=== PATIENT | female | born 1990 | race Caucasian/White ===

== ENCOUNTER 2016-10-24 12:59 | Observation (INO) | payer OTHER ==
[~2016-10-24] VITALS: Ht 167.6 cm; Wt 136.1 kg
[2016-10-24 13:49] VITALS: BP 162/97
[2016-10-24] MEDS ORDERED: CLON0.1T78 PO (13:57)
[2016-10-24] MEDS ORDERED: LOV40I SUBQ (13:57)
--- NOTE | 2016-10-24 14:04 | NUR ---
Patient to bed 04.
--- NOTE | 2016-10-24 14:12 | NUR ---
26/F TO ED WITH C/O SOB, GEN WEAKNESS, AND CHEST DISCOMFORT STARTING TODAY. PT DENIES PAIN. STATES SHE TAKES LOVENOX. LUNGS CLEAR BILAT. HR EVEN AND REGULAR. AAOX4. VSS. NO SIGNS OF DISTRESS.
--- NOTE | 2016-10-24 14:49 | NUR ---
RT-Dusty at bedside to perform ABG.
[2016-10-24 15:05] LABS: BASOPHILS # (AUTO) 0.1 K/uL (0.00-0.22); BASOPHILS % (AUTO) 1.4 % (0.0-2.0); EOSINOPHILS # (AUTO) 0.2 K/uL (0-0.4); EOSINOPHILS % (AUTO) 1.7 % (0.0-4.0); HEMATOCRIT 39.4 % (36-48); HEMOGLOBIN 13.3 g/dL (12.0-16.0); LYMPHOCYTES # (AUTO) 2.9 K/uL (2.5-16.5); LYMPHOCYTES % (AUTO) 27.8 % (20.5-51.1); MEAN CORPUSCULAR HEMOGLOBIN 28 pg (27-31); MEAN CORPUSCULAR HGB CONC 34 g/dL (33-37); MEAN CORPUSCULAR VOLUME 84 fL (80-94); MONOCYTES # (AUTO) 0.5 K/uL (0.8-1.0); MONOCYTES % (AUTO) 5.2 % (1.7-9.3); NEUTROPHILS # (AUTO) 6.6 K/uL (1.8-7.7); NEUTROPHILS % (AUTO) 63.9 % (42.2-75.2); PLATELET COUNT (AUTO) 226 K/uL (140-450); RED BLOOD CELL COUNT(AUTO) 4.67 MIL/uL (4.20-5.40); WHITE BLOOD COUNT (AUTO) 10.3 K/uL (4.8-10.8)
[2016-10-24 15:08] LABS: BLOOD GAS BASE EXCESS 0.2 mmol/L (-2.0-2.0); BLOOD GAS HCO3 24.7 mmol/L; BLOOD GAS PCO2 39.5 mmHg (20-50); BLOOD GAS PH 7.414 (7.35-7.45); BLOOD GAS PO2 88.6 mmHg
[2016-10-24 15:09] LABS: BLOOD GAS O2 SAT% 96.5 % (92.0-98.5)
--- NOTE | 2016-10-24 15:09 | NUR ---
Patient appears to be resting comfortably in bed. Vital Signs within normal limits. Respirations even and unlabored.
[2016-10-24 15:16] LABS: ANION GAP 12.2 (8-16); CALCIUM 8.8 mg/dL (8.5-10.1); CARBON DIOXIDE 26.8 mmol/L (21-32); CREATININE 0.8 mg/dL (0.6-1.3)
[2016-10-24 15:22] LABS: ALBUMIN 3.3 g/dL (3.4-5.0); TOTAL BILIRUBIN 0.6 mg/dL (0.0-1.0); TOTAL PROTEIN, SERUM 7.3 g/dL (6.4-8.2)
--- NOTE | 2016-10-24 17:32 | NUR ---
Patient appears to be resting comfortably in bed. Vital Signs within normal limits. Respirations even and unlabored.
[2016-10-24] MEDS ORDERED: ONDANSETRON 4 MG/2 ML VIAL IVP PRN (17:50)
[2016-10-24] MEDS ORDERED: LOVENOX 1MG/KG Q12H SUBQ SCH (17:50)
[2016-10-24] MEDS ORDERED: hydrALAZINE 20 MG/ML VIAL IVP PRN (17:50)
[2016-10-24] MEDS ORDERED: HYDROcodone/APAP 5/325 MG 1 TAB TAB PO PRN ×2 (17:50)
[2016-10-24] MEDS ORDERED: LORazepam 2 MG/ML VIAL IVP PRN (17:50)
[2016-10-24] MEDS ORDERED: ACETAMINOPHEN 325 MG TAB PO PRN (17:50)
--- NOTE | 2016-10-24 18:21 | NUR ---
Patient will be admitted to care of DR RIVAS. Admited to TELE. Will go to room 104A. Belongings list completed. Report to SAMEER.
--- NOTE | 2016-10-24 18:50 | NUR ---
RECEIVED PATIENT FROM ER, PATIENT ALERT, ORIENTED, DENIES ANY PAIN
--- NOTE | 2016-10-24 19:00 | NUR ---
SBAR REPORT GIVEN TO SINTIA CARLIN
[2016-10-24 19:01] VITALS: BP 145/83
[2016-10-24 20:00] VITALS: BP 128/88
--- NOTE | 2016-10-24 20:15 | NUR ---
ADMITTED 26 Y.O.F FROM ER.PT WAS ON THE FLOOR ALREADY.SHE IS AWAKE,ALERT AND ORIENTED.ORIENTED PT TO ROOM.CALL SYSTEM EXPLAINED AND IN REACH.TELE IS ON AND SHOWING SB.RESP.UNLABORED IN RA.SL PATENT.INITIAL ASSESSMENT DONE CARE PLAN DISCUSSED WITH PT.SHE VERBALIZED UNDERSTANDING.DENIED PAIN AND/OR DISCOMFORT AT TIME OF ADMISSION.WILL CONTINUE MONITORING.
[2016-10-24] MEDS: ENOXAPARIN 100 MG/ML SYR SUBQ SCH (22:00)
[2016-10-24] MEDS: ENOXAPARIN 30 MG/0.3 ML SYR SUBQ SCH (22:00)
[2016-10-24] MEDS ORDERED: ENOXAPARIN 100 MG/ML SYR SUBQ ONE (22:10)
[2016-10-24] MEDS ORDERED: ENOXAPARIN 30 MG/0.3 ML SYR SUBQ ONE (22:10)
[2016-10-25] VITALS: BP 126/85
--- NOTE | 2016-10-25 | NUR ---
SLEEPING.NO C/O PAIN.HR IS SB.PT IS ASYMPTOMATIC.
[2016-10-25 04:00] VITALS: BP 126/80
--- NOTE | 2016-10-25 04:00 | NUR ---
CONDITION STABLE.HR IS SB.URINE D/S SENT TO LAB.NO S/S OF ANY DISTRESS NOTED.
[2016-10-25 04:39] LABS: AMPHETAMINE, URINE NEGATIVE ng/ml (NEG <=1000); BARBITURATE, URINE NEGATIVE ng/ml (NEG <=200); BENZODIAZEPINE, URINE NEGATIVE ng/mL (NEG <=200); CANNABINOID, URINE NEGATIVE ng/mL (NEG <=50); COCAINE, URINE NEGATIVE ng/mL (NEG <=300); OPIATE, URINE NEGATIVE ng/mL (NEG <=2000); PHENCYCLIDINE SCREEN,URINE NEGATIVE ng/mL (NEG <=25)
--- NOTE | 2016-10-25 06:25 | NUR ---
SLEPT WELL.HAS ASYMPTOMATIC BRADYCARDIA.SL PATENT.CALL LIGHT IN REACH.NO DISTRESS NOTED AT PRESENT TIME.
[2016-10-25 06:58] LABS: BASOPHILS # (AUTO) 0.2 K/uL (0.00-0.22); BASOPHILS % (AUTO) 2.6 % (0.0-2.0); EOSINOPHILS # (AUTO) 0.2 K/uL (0-0.4); EOSINOPHILS % (AUTO) 1.8 % (0.0-4.0); HEMATOCRIT 38.6 % (36-48); LYMPHOCYTES # (AUTO) 3.2 K/uL (2.5-16.5); LYMPHOCYTES % (AUTO) 36.5 % (20.5-51.1); MEAN CORPUSCULAR HEMOGLOBIN 28 pg (27-31); MEAN CORPUSCULAR HGB CONC 34 g/dL (33-37); MEAN CORPUSCULAR VOLUME 84 fL (80-94); MONOCYTES # (AUTO) 0.7 K/uL (0.8-1.0); MONOCYTES % (AUTO) 8.1 % (1.7-9.3); NEUTROPHILS # (AUTO) 4.5 K/uL (1.8-7.7); PLATELET COUNT (AUTO) 203 K/uL (140-450); RED CELL DISTRIBUTION WIDTH 14.1 % (11.6-13.7); WHITE BLOOD COUNT (AUTO) 8.8 K/uL (4.8-10.8)
--- NOTE | 2016-10-25 07:20 | NUR ---
RECEIVED PT REPORT AT BEDSIDE FROM NIGHT NURSE. PT IS AAOX4 AND SHOWS NO S/S OF DISTRESS ON ROOM AIR. PT SKIN IS INTACT. PT DID C/O RT SIDE CHEST AND ABD PAIN. PT IS ON TELE MONITORING. PT BED IS LOWERED WITH CALL LIGHT WITHIN REACH. POC WAS DISCUSSED WITH PT AND SHE VERBALIZED UNDERSTANDING.
[2016-10-25 07:21] LABS: CALCIUM 8.5 mg/dL (8.5-10.1); CREATININE 0.8 mg/dL (0.6-1.3); TOTAL BILIRUBIN 0.6 mg/dL (0.0-1.0); TOTAL PROTEIN, SERUM 6.8 g/dL (6.4-8.2)
--- NOTE | 2016-10-25 07:35 | NUR ---
HAD C/O RT SIDE OF CHEST AND ABDOMEN.NORCO 1 TAB PO GIVEN.
[2016-10-25 08:00] VITALS: BP 131/75
--- NOTE | 2016-10-25 08:50 | NUR ---
ADMINISTERED SCHEDULED MEDICATIONS. PT TOLERATED WELL. PT SHOWS NO S/S OF DISTRESS NOTED ONE ROOM AIR.
[2016-10-25] MEDS ORDERED: NIFE30TE5 PO (08:53)
[2016-10-25] MEDS: ENOXAPARIN 100 MG/ML SYR SUBQ SCH (08:59)
[2016-10-25] MEDS: ENOXAPARIN 30 MG/0.3 ML SYR SUBQ SCH (08:59)
[2016-10-25] MEDS ORDERED: NIFEdipine 30 MG TABER PO SCH (09:00)
--- NOTE | 2016-10-25 09:22 | NUR ---
PATIENT HAS BEEN SCREENED AND CATEGORIZED HIGH NUTRITION RISK. PATIENT WILL BE SEEN WITHIN 1-2 DAYS OF ADMISSION. 10/25/16 - 10/26/16 ANALI BLAKE MBA, RD
--- NOTE | 2016-10-25 10:30 | NUR ---
PT BEING SEEN BY MEASURING MACHINE TENDER.
--- NOTE | 2016-10-25 10:50 | NUR ---
PT HAS BEEN DISCHARGED. DISCHARGE INSTRUCTIONS AND PRESCRIPTIONS GIVEN. ALL QUESTIONS ANSWERED. PT VERBALIZED UNDERSTANDING. ALL BELONGINGS AND PRESCRIPTIONS IN PT POSSESSION. IV DISCONTINUED WITH CANNULA INTACT. WRISTBANDS AND TELE MONITOR REMOVED. OFFERED PT WHEELCHAIR, PT REFUSED. PT AMB OUT OF UNIT WITH STEADY GAIT WITH HARSH PATRICIO PRESENT AT SIDE. PT IN STABLE CONDITION.
== END 2016-10-25 10:50 | disposition home or self-care (01) ==
LOC: MED 12:59 → MTU 17:55
PROVIDERS: ADMIT Hospitalist; ATTEND Hospitalist
DX: R00.1 Bradycardia, unspecified (principal); E66.01 Morbid (severe) obesity due to excess calories; R73.03 Prediabetes; I82.401 Acute embolism and thrombosis of unspecified deep veins of right lower extremity; I26.99 Other pulmonary embolism without acute cor pulmonale; Z98.84 Bariatric surgery status; Z68.42 Body mass index [BMI] 45.0-49.9, adult
CPT/HCPCS: 36415; 36600; 80053; 80305; 82803; 84443; 84484; 85025; 87081; 93005; 93307; G0378; J1650; 96372; 99285

== ENCOUNTER 2017-04-30 18:15 | Emergency (ER) | payer OTHER ==
[~2017-04-30] VITALS: Ht 170.2 cm; Wt 117.0 kg
[~2017-04-30 18:15] MED LIST: LOV40I SUBQ; NIFE30TE5 PO
[2017-04-30 18:21] VITALS: BP 176/114
--- NOTE | 2017-04-30 20:14 | NUR ---
PATIENT TO ER BED 11
--- NOTE | 2017-04-30 20:30 | NUR ---
27/F CAME IN W C/O DIZZINESS AND HEADACHE STARTED X 1 HOUR BEFORE ER VISIT. PT STATES SHE WAS DRIVING AND FELT DIZZY, SOB AND HAD ANXIETY, DENIES LOC, HEAD TRAUMA/INJURY. PT REPORTS PHOTOSENSITIVITY AND DIFFUSED HEADACHE. PERRLA, GCS 15, AOX4. ALL LUNG SOUNDS CBTA, 18RR EVEN AND UNLABORED. 46HR EVEN AD REGULAR. DENIES S/S OF DUMPING SYNDROME PMH: BRADYCARDIA GASTRIC BYPASS, HTN. DVT TO RLE. RX: LISINOPRIL BUT REPORTS SHE DOES NOT TAKE MED REGULARY, LAST TAKEN TUEDAY. VSS AT THIS TIME.
[2017-04-30] MEDS ORDERED: NACL 0.9% 1,000 ML IV ONE (21:20)
--- NOTE | 2017-04-30 22:00 | NUR ---
Patient discharged with v/s stable. Written and verbal after care instructions given and explained. Patient verbalized understanding. Ambulatory with steady gait. All questions addressed prior to discharge. Advised to follow up with PMD. IV removed, catheter intact and site benign. Applied folded 4x4 gauze and tape to stop bleeding.
[2017-04-30 22:12] LABS: BASOPHILS # (AUTO) 0.5 K/uL (0.00-0.22); BASOPHILS % (AUTO) 4.6 % (0.0-2.0); EOSINOPHILS # (AUTO) 0.1 K/uL (0-0.4); EOSINOPHILS % (AUTO) 0.8 % (0.0-4.0); HEMATOCRIT 41.8 % (36-48); HEMOGLOBIN 13.7 g/dL (12.0-16.0); LYMPHOCYTES # (AUTO) 2.7 K/uL (2.5-16.5); LYMPHOCYTES % (AUTO) 26.7 % (20.5-51.1); MEAN CORPUSCULAR HEMOGLOBIN 28 pg (27-31); MEAN CORPUSCULAR HGB CONC 33 g/dL (33-37); MEAN CORPUSCULAR VOLUME 85 fL (80-94); MONOCYTES # (AUTO) 0.7 K/uL (0.8-1.0); MONOCYTES % (AUTO) 7.2 % (1.7-9.3); NEUTROPHILS # (AUTO) 6.2 K/uL (1.8-7.7); NEUTROPHILS % (AUTO) 60.7 % (42.2-75.2); PLATELET COUNT (AUTO) 268 K/uL (140-450); RED BLOOD CELL COUNT(AUTO) 4.92 MIL/uL (4.20-5.40); RED CELL DISTRIBUTION WIDTH 14.1 % (11.6-13.7); WHITE BLOOD COUNT (AUTO) 10.3 K/uL (4.8-10.8)
[2017-04-30 22:19] LABS: ANION GAP 9.9 (8-16); CREATININE 0.9 mg/dL (0.6-1.3); POTASSIUM 3.9 mmol/L (3.5-5.1)
[2017-04-30 22:25] LABS: ALBUMIN 3.4 g/dL (3.4-5.0); MAGNESIUM 1.7 mg/dL (1.8-2.4); TOTAL BILIRUBIN 0.4 mg/dL (0.0-1.0)
[2017-04-30 22:30] LABS: D-DIMER < 100 ng/ml (0-400)
[2017-04-30 23:42] VITALS: BP 128/78
== END 2017-04-30 22:00 | disposition home or self-care (01) ==
LOC: MED 18:15
DX: F41.9 Anxiety disorder, unspecified (principal); E11.9 Type 2 diabetes mellitus without complications; I10 Essential (primary) hypertension
CPT/HCPCS: 36415; 80053; 81025; 83735; 85025; 85379; 85610; 85730; 96360; 96361; 99285; J7030

== ENCOUNTER 2018-08-09 07:50 | Observation (INO) | payer OTHER ==
[~2018-08-09] VITALS: Ht 167.6 cm; Wt 124.3 kg
[2018-08-09 09:37] LABS: BILIRUBIN,URINE 1+ (NEGATIVE); BLOOD, URINE NEGATIVE (NEGATIVE); COLOR,URINE YELLOW (YELLOW); LEUKOCYTE ESTERASE ,URINE NEGATIVE (NEGATIVE); NITRITE, URINE NEGATIVE (NEGATIVE); UGLUCOSE NEGATIVE (NEGATIVE)
[2018-08-09 09:40] LABS: BASOPHILS % (AUTO) 0.4 % (0.0-2.0); EOSINOPHILS # (AUTO) 0.1 K/uL (0-0.4); EOSINOPHILS % (AUTO) 0.7 % (0.0-4.0); HEMATOCRIT 33.9 % (36-48); HEMOGLOBIN 11.7 g/dL (12.0-16.0); LYMPHOCYTES % (AUTO) 19.3 % (20.5-51.1); MEAN CORPUSCULAR HEMOGLOBIN 30 pg (27-31); MEAN CORPUSCULAR HGB CONC 34 g/dL (33-37); MEAN CORPUSCULAR VOLUME 87.2 fL (80-94); MONOCYTES # (AUTO) 0.9 K/uL (0.8-1.0); MONOCYTES % (AUTO) 8.6 % (1.7-9.3); NEUTROPHILS # (AUTO) 7.4 K/uL (1.8-7.7); PLATELET COUNT (AUTO) 207 K/uL (140-450); RED BLOOD CELL COUNT(AUTO) 3.89 MIL/uL (4.20-5.40); RED CELL DISTRIBUTION WIDTH 12.9 % (11.6-13.7); WHITE BLOOD COUNT (AUTO) 10.5 K/uL (4.8-10.8)
[2018-08-09 09:41] LABS: APPEARANCE,URINE SLIGHTLY HAZY (CLEAR)
[2018-08-09 09:42] LABS: RBC,URINE 0-5 /HPF (0-5); WBC,URINE 0-5 /HPF (0-5)
[2018-08-09] MEDS ORDERED: CALC500T2 PO (09:46)
[2018-08-09] MEDS ORDERED: VITA1TAB44 PO (09:46)
[2018-08-09] MEDS ORDERED: PREN-380 PO (09:46)
[2018-08-09] MEDS ORDERED: FERR-252 PO (09:46)
== END 2018-08-09 15:00 | disposition home or self-care (01) ==
LOC: MLD 07:50
PROVIDERS: ADMIT Obstetrics & Gynecology; ATTEND Obstetrics & Gynecology
DX: O26.893 Other specified pregnancy related conditions, third trimester (principal); R10.9 Unspecified abdominal pain; Z3A.28 28 weeks gestation of pregnancy
CPT/HCPCS: 36415; 81001; 85025; C1758; G0378; 59025

== ENCOUNTER 2022-10-03 09:18 | Emergency (ER) | payer OTHER ==
[~2022-10-03] VITALS: Ht 170.2 cm; Wt 136.1 kg
[~2022-10-03 09:18] MED LIST changes: +CALC500T2 PO; +FERR-252 PO; -LOV40I SUBQ; -NIFE30TE5 PO; +PREN-380 PO; +VITA1TAB44 PO
[2022-10-03 09:40] VITALS: BP 155/80
[2022-10-03] MEDS ORDERED: IBUPROFEN 600 MG TAB PO ONE (10:35)
[2022-10-03] MEDS ORDERED: IBUP-2213 PO (11:09)
--- NOTE | 2022-10-03 11:11 | NUR ---
MARYAN WRAP X 1 TO R ANKLE + CMS
[2022-10-03 11:14] VITALS: BP 155/80
--- NOTE | 2022-10-03 11:14 | NUR ---
Patient discharged with v/s stable. Written and verbal after care instructions given and explained. Patient alert, oriented and verbalized understanding of instructions. Ambulatory with steady gait. All questions addressed prior to discharge. ID band removed. Patient advised to follow up with PMD. Rx of ibuprofen (sent) given. Patient educated on indication of medication including possible reaction and side effects. Opportunity to ask questions provided and answered.
== END 2022-10-03 11:14 | disposition home or self-care (01) ==
LOC: MED 09:18
DX: S93.491A Sprain of other ligament of right ankle, initial encounter (principal); I25.10 Atherosclerotic heart disease of native coronary artery without angina pectoris; I10 Essential (primary) hypertension; Z79.899 Other long term (current) drug therapy; X58.XXXA Exposure to other specified factors, initial encounter; Y93.89 Activity, other specified; Y92.89 Other specified places as the place of occurrence of the external cause; Y99.8 Other external cause status
CPT/HCPCS: 73610; 73630; 99284